=== PATIENT | female | born 1990 | race Caucasian/White ===

== ENCOUNTER 2017-06-29 18:11 | Emergency (ER) | payer BC ==
[~2017-06-29] VITALS: Ht 175.3 cm; Wt 81.6 kg
[2017-06-29 18:16] VITALS: BP_SYST 161
[2017-06-29] MEDS ORDERED: ONDANSETRON 4 MG ODT TAB PO ONE (20:15)
[2017-06-29] MEDS ORDERED: fentaNYL CITRATE/PF 100 MCG/2 ML AMP IM ONE (20:15)
[2017-06-29] MEDS ORDERED: PROCHLORPERAZINE EDISYLATE 10 MG/2 ML VIAL IM ONE (20:45)
[2017-06-29 21:29] VITALS: BP_SYST 120
== END 2017-06-29 21:29 | disposition home or self-care (01) ==
LOC: SED 18:11
DX: G43.909 Migraine, unspecified, not intractable, without status migrainosus (principal)
CPT/HCPCS: 70450; 72125; 96372; 99284; J0780; J3010; Q0162